=== PATIENT | male | born 1995 | race Caucasian/White ===

== ENCOUNTER 2018-05-16 23:03 | Emergency (ER) | payer MEDICAID ==
[~2018-05-16] VITALS: Ht 170.2 cm; Wt 80.0 kg
[2018-05-16 23:08] VITALS: Ht 170.2 cm; Wt 80.0 kg
[2018-05-16] MEDS ORDERED: ALBUTEROL SULF8.5 GM (23:10)
[2018-05-16] MEDS ORDERED: CREON (PANCRELI1 CAP (23:10)
[2018-05-16] MEDS ORDERED: HUMALOG 30100 UNITS/ (23:10)
[2018-05-16] MEDS ORDERED: CETIRIZINE HCL5 M1 (23:10)
[2018-05-16] MEDS ORDERED: LANTUS INSULIN10 ML (23:10)
[2018-05-16 23:39] LABS: HEMATOCRIT 45.1 % (42.0-54.0); HEMOGLOBIN 15.4 g/dL (13.5-17.5); LYMPHOCYTES 7.8 % (15-50); MCH 29.7 pg (26.0-34.0); MCHC 34.1 g/dL (31.0-37.0); MCV 86.9 fL (80.0-100.0); MEAN PLATELET VOLUME 10.1 fL (7.4-10.4); NEUTROPHILS 85.6 % (40-80); PLATELET COUNT 254 10x3/uL (130-400); RBC 5.19 10x6/uL (4.20-6.10); RDW 12.8 % (11.5-14.5); WBC 17.6 10x3/uL (4.8-10.8)
[2018-05-16 23:57] LABS: KETONE - SERUM NEGATIVE (NEGATIVE)
[2018-05-17 00:24] LABS: ALBUMIN 3.8 g/dL (3.4-5.0); ALKALINE PHOSPHATASE 136 U/L (46-116); ALT (SGPT) 46 U/L (10-68); AMYLASE - SERUM 43 U/L (25-115); BILIRUBIN - TOTAL 0.29 mg/dL (0.2-1.3); CALCIUM 8.2 mg/dL (8.5-10.1); CARBON DIOXIDE 22.5 mmol/L (21.0-32.0); CHLORIDE - SERUM 99 mmol/L (98-107); CREATININE - SERUM 1.5 mg/dL (0.6-1.3); MAGNESIUM - SERUM 2.1 mg/dL (1.8-2.4); POTASSIUM - SERUM 4.4 mmol/L (3.5-5.1); PROTEIN - SERUM 6.9 g/dL (6.4-8.2); SODIUM 135 mmol/L (136-145); UREA NITROGEN 19 mg/dL (7-18); eGFR NON AFRICAN AMERICAN 62 mL/min (90-120)
[2018-05-17 00:25] LABS: LIPASE 37 U/L (73-393)
[2018-05-17 00:26] LABS: CALC OSMOLALITY 295 mosm/kg (275-300); GLUCOSE 536 mg/dL (74-106); TROPONIN-I < 0.017 ng/mL (0.000-0.060)
[2018-05-17 01:31] LABS: APPEARANCE CLEAR (CLEAR); BILIRUBIN NEGATIVE (NEGATIVE); COLOR YELLOW (YELLOW); GLUCOSE 1000 mg/dL (NEGATIVE); KETONE NEGATIVE (NEGATIVE); NITRITE NEGATIVE (NEGATIVE); PROTEIN NEGATIVE (NEGATIVE); UROBILINOGEN NORMAL (NORMAL)
[2018-05-17 03:39] VITALS: BP 133/82
== END 2018-05-17 04:27 | disposition short-term general hospital (02) ==
LOC: D.ER 23:03
PROVIDERS: Emergency Medicine
DX: E10.65 Type 1 diabetes mellitus with hyperglycemia (principal); E84.9 Cystic fibrosis, unspecified; K56.609 Unspecified intestinal obstruction, unspecified as to partial versus complete obstruction